=== PATIENT | female | born 1985 | race Caucasian/White ===

== ENCOUNTER 2016-06-01 19:08 | Emergency (ER) | payer MEDICAID ==
[~2016-06-01] VITALS: Wt 68.2 kg
[2016-06-01] MEDS ORDERED: ONDANSETRON 4 MG INJ IV STA (21:38)
[2016-06-01] MEDS ORDERED: morphine 4 MG/ML VIAL IV STA (21:38)
--- NOTE | 2016-06-01 21:42 | ERD ---
ER Documentation Chief Complaint Date/Time DATE: 06/01/16 TIME: 21:41 Chief Complaint abd pain rad into back and cwp HPI This a 31-year-old female who presents to the emergency department today complaining of abdominal pain that radiates into her back. Patient states she also feels some shortness of breath. She has not taken any medication for the pain. States she had one bout of vomiting. Denies any fevers or chills. Denies any cough. ROS All systems reviewed and are negative except as per history of present illness. Medications Home Meds Active Scripts Ondansetron Hcl* (Zofran*) 4 Mg Tablet, 4 MG PO Q6H for NAUSEA AND/OR VOMITING, #30 TAB Prov:KAREEM ESTRADA PA-C 06/02/16 Nitrofurantoin Monohyd Macrocr* (Macrobid*) 100 Mg Capsr, 100 MG PO BID for 7 Days, CAP Prov:KAREEM ESTRADA PA-C 06/02/16 Ibuprofen* (Motrin*) 600 Mg Tab, 600 MG PO Q6, #30 TAB Prov:KAREEM ESTRADA PA-C 06/02/16 Hydrocodone/Acetaminophen ([place] 5-325 Tablet) 1 Each Tablet, 1 TAB PO Q6H Y for PAIN, #12 TAB Prov:KAREEM ESTRADA PA-C 06/02/16 PMhx/Soc Medical and Surgical Hx: pt denies Medical Hx, pt denies Surgical Hx History of Surgery: No Anesthesia Reaction: No Hx Neurological Disorder: No Hx Respiratory Disorders: No Hx Cardiac Disorders: No Hx Psychiatric Problems: No Hx Miscellaneous Medical Probl: No Hx Alcohol Use: No Hx Substance Use: No Hx Tobacco Use: No Smoking Status: Never smoker Physical Exam Vitals Vital Signs Date Time Temp Pulse Resp B/P Pulse Ox O2 Delivery O2 Flow Rate FiO2 06/01/16 19:40 99.1 73 20 110/67 100 Physical Exam Const: No acute distress Head: Atraumatic Eyes: Normal Conjunctiva ENT: Normal External Ears, Nose and Mouth. Neck: Full range of motion..~ No meningismus. Resp: Clear to auscultation bilaterally Cardio: Regular rate and rhythm, no murmurs Abd: Soft, epigastric and right upper quadrant tenderness non distended. Normal bowel sounds. No right lower quadrant pain. No left lower quadrant pain. No tenderness to McBurney's. Skin: No petechiae or rashes Back: No midline or flank tenderness. No CVA tenderness Ext: No cyanosis, or edema Neur: Awake and alert Psych: Normal Mood and Affect Result Diagram: 06/01/16214906/01/162149 Results 24 hrs Laboratory Tests Test 06/01/16 21:50 06/01/16 23:00 Alanine Aminotransferase (ALT/SGPT) 69IU/L Albumin 4.3g/dl Albumin/Globulin Ratio 1.34 Alkaline Phosphatase 140IU/L Anion Gap 19 Aspartate Amino Transf (AST/SGOT) 44IU/L Basophils # 0.010^3/ul Basophils % 0.3% Blood Urea Nitrogen 16mg/dl Calcium Level 9.1mg/dl Carbon Dioxide Level 24mmol/L Chloride Level 106mmol/L Creatinine 0.88mg/dl Direct Bilirubin 0.00mg/dl Eosinophils # 0.110^3/ul Eosinophils % 0.8% Globulin 3.20g/dl Glucose Level 92mg/dl Hematocrit 39.7% Hemoglobin 12.9g/dl Indirect Bilirubin 0.3mg/dl Lipase 125U/L Lymphocytes # 2.110^3/ul Lymphocytes % 21.3% Mean Corpuscular Hemoglobin 27.2pg Mean Corpuscular Hemoglobin Concent 32.5g/dl Mean Corpuscular Volume 83.8fl Mean Platelet Volume 11.6fl Monocytes # 0.810^3/ul Monocytes % 7.6% Neutrophils # 6.910^3/ul Neutrophils % 69.7% Nucleated Red Blood Cells # 0.010^3/ul Nucleated Red Blood Cells % 0.0/100WBC Platelet Count 03566^3/UL Potassium Level 3.4mmol/L Red Blood Count 4.7410^6/ul Red Cell Distribution Width 15.1% Sodium Level 146mmol/L Total Bilirubin 0.3mg/dl Total Protein 7.5g/dl White Blood Count 9.810^3/ul Bedside Urine Blood 1+ Bedside Urine Glucose (UA) Negative Bedside Urine Ketones (LAB) Negative Bedside Urine Leukocyte Esterase (L 1+ Bedside Urine Nitrite (LAB) Negative Bedside Urine Protein (LAB) 1+ Bedside Urine pH (LAB) 6.0 Current Medications Medications (Trade) Dose Ordered Sig/Theodore Route PRN Reason Start Time Stop Time Status Last Admin Dose Admin Morphine Sulfate (morphine) 4 mg ONCE STAT IV 06/01/16 21:38 06/01/16 21:39 DC 06/01/16 21:58 Ondansetron HCl (Zofran Inj) 4 mg ONCE STAT IV 06/01/16 21:38 06/01/16 21:39 DC 06/01/16 21:56 DIAGNOSTIC IMAGING REPORT Patient: JORGE PEREZ : 1985 Age: 31 Sex: F MR #: [id number] DOS: 06/01/162137 Ordering MD: KAREEM ESTRADA PA-C Location: [facility] Room/Bed: PROCEDURE: Right upper quadrant abdominal ultrasound. CLINICAL INDICATION: Abdominal pain TECHNIQUE: Dooley scale and color doppler ultrasound images of the right upper quadrant. COMPARISON: None FINDINGS: Pancreas: Visualized portions appear of normal echogenicity, no focal lesions. Liver: Morphology: Normal in size and contour. Echogenicity: Normal. Focal lesions: None. Main portal vein: Patent with hepatopetal flow. Biliary System: Gallbladder appears distended without wall thickening. Sludge and small gallstones are seen layering within the gallbladder. No intrahepatic biliary dilatation. Common bile duct measures 3.8 mm in maximal dimension. Kidneys: Right 9.9 cm in length. Right renal cortical thickness is preserved. Normal echogenicity. No hydronephrosis. No renal calculi. No focal lesions. No free fluid identified. IMPRESSION: Gallbladder is distended without wall thickening to suggest cholecystitis. Sludge and small gallstones are present layering within the gallbladder. Normal caliber intrahepatic and extrahepatic biliary system. RPTAT: AADD .Altaf Lemons MD, MD Date Time Electronically viewed and signed by .Altaf Lemons MD, on 06/01/2016 22:36 .B/ CC: KAREEM ESTRADA PA-C DIAGNOSTIC IMAGING REPORT Patient: JORGE PEREZ : 1985 Age: 31 Sex: F MR #: [id number] DOS: 06/01/16 0000 Ordering MD: KAREEM ESTRADA PA-C Location: [facility] Room/Bed: PROCEDURE: Portable chest x-ray. CLINICAL INDICATION: Shortness of breath. TECHNIQUE: Portable AP view of the chest. COMPARISON: None. FINDINGS: No pulmonary edema or conolidation is identified. The cardiac silhouette is magnified. No pleural effusion is seen. There is no pneumothorax. IMPRESSION: 1. No evidence of acute cardiopulmonary disease. RPTAT: HTAR .Reyes Antonio MD, MD Date Time Electronically viewed and signed by .Reyes Antonio MD, MD on 06/01/2016 23:51 .R/ CC: KAREEM ESTRADA PA-C Procedures/MDM This 31-year-old female who presents to the emergency department today complaining of abdominal pain that radiates into her back for the past 3 hours as well as some shortness of breath. Patient had epigastric and right upper quadrant pain on physical exam and therefore did do an ultrasound and laboratory work Laboratory work shows no elevated white blood cell count. She is not anemic. Platelets are within normal limits. Sodium is mildly elevated otherwise electrolytes are within normal limits. Potassium is very mildly decreased. Glucose is within normal limits. Liver functions within normal limits. Lipase is within normal limits. test is negative UA shows 1+ leukocyte esterase. I will treat the patient with Macrobid for urinary tract infection. Ultrasound shows the gallbladder is distended without wall thickening to suggest cholecystitis. There is sludge and small gallstones present layering within the gallbladder. There is normal caliber intrahepatic and extrahepatic biliary system. Patient's symptoms at this time most consistent with gallstones and biliary colic as well as urinary tract infection. Low suspicion for acute surgical abdomen at this time. Patient was given morphine and Zofran here in the emergency department and pain improved significantly. Patient will be given a prescription for [place],, Motrin Zofran and Macrobid At this time the patient is stable for discharge and outpatient management. Patient should follow up with their PCP in the next 1-2 days. They may return to the emergency department sooner for any persistent or worsening of symptoms. Patient understood and agreed with the plan. Departure Diagnosis: Primary Impression: Biliary colic Additional Impression: UTI (urinary tract infection) Urinary tract infection type: site unspecified Hematuria presence: with hematuria Qualified Code: N39.0 - Urinary tract infection with hematuria, site unspecified Condition: KAREEM Cat PA-C Jun 01, 2016 21:42
[2016-06-01 22:20] LABS: ADD SCAN DIFF NO
[2016-06-01 22:23] LABS: BASOPHILS % 0.3 % (0.0-2.0); EOSINOPHILS # 0.1 10^3/ul (0.0-0.5); EOSINOPHILS % 0.8 % (0.0-7.0); HEMATOCRIT 39.7 % (37.0-47.0); HEMOGLOBIN 12.9 g/dl (12.0-16.0); LYMPHOCYTES # 2.1 10^3/ul (0.8-2.9); LYMPHOCYTES % 21.3 % (15.0-51.0); MEAN CORPUSCULAR HEMOGLOBIN 27.2 pg (29.0-33.0); MEAN CORPUSCULAR HGB CONC 32.5 g/dl (32.0-37.0); MEAN CORPUSCULAR VOLUME 83.8 fl (82.0-101.0); MEAN PLATELET VOLUME 11.6 fl (7.4-10.4); MONOCYTE # 0.8 10^3/ul (0.3-0.9); MONOCYTES % 7.6 % (0.0-11.0); NEUTROPHIL # 6.9 10^3/ul (1.6-7.5); NEUTROPHILS % 69.7 % (39.0-77.0); PLATELET COUNT 273 10^3/UL (140-415); RED BLOOD COUNT 4.74 10^6/ul (4.20-5.40); RED CELL DISTRIBUTION WIDTH 15.1 % (11.5-14.5); WHITE BLOOD COUNT 9.8 10^3/ul (4.8-10.8)
--- NOTE | 2016-06-01 22:37 | RADRPT ---
PROCEDURE: Right upper quadrant abdominal ultrasound. CLINICAL INDICATION: Abdominal pain TECHNIQUE: Dooley scale and color doppler ultrasound images of the right upper quadrant. COMPARISON: None FINDINGS: Pancreas: Visualized portions appear of normal echogenicity, no focal lesions. Liver: Morphology: Normal in size and contour. Echogenicity: Normal. Focal lesions: None. Main portal vein: Patent with hepatopetal flow. Biliary System: Gallbladder appears distended without wall thickening. Sludge and small gallstones are seen layering within the gallbladder. No intrahepatic biliary dilatation. Common bile duct measures 3.8 mm in maximal dimension. Kidneys: Right 9.9 cm in length. Right renal cortical thickness is preserved. Normal echogenicity. No hydronephrosis. No renal calculi. No focal lesions. No free fluid identified. IMPRESSION: Gallbladder is distended without wall thickening to suggest cholecystitis. Sludge and small gallstones are present layering within the gallbladder. Normal caliber intrahepatic and extrahepatic biliary system. RPTAT: AADD .Altaf Lemons MD, MD Date Time Electronically viewed and signed by .Altaf Lemons MD, on 06/01/2016 22:36 .B/
[2016-06-01 22:49] LABS: ALBUMIN 4.3 g/dl (3.3-4.9); POTASSIUM 3.4 mmol/L (3.5-5.1)
[2016-06-01 22:51] LABS: BILIRUBIN,INDIRECT 0.3 mg/dl (0-1.1); BILIRUBIN,TOTAL 0.3 mg/dl (0.2-1.3); CREATININE 0.88 mg/dl (0.44-1.00)
[2016-06-01 22:52] LABS: ALBUMIN/GLOBULIN RATIO 1.34; CALCIUM 9.1 mg/dl (8.4-10.2); TOTAL PROTEIN 7.5 g/dl (6.1-8.1)
[2016-06-01 23:02] LABS: URINE BLOOD (Dip) POC 1+ (NEGATIVE)
--- NOTE | 2016-06-01 23:51 | RADRPT ---
PROCEDURE: Portable chest x-ray. CLINICAL INDICATION: Shortness of breath. TECHNIQUE: Portable AP view of the chest. COMPARISON: None. FINDINGS: No pulmonary edema or conolidation is identified. The cardiac silhouette is magnified. No pleural effusion is seen. There is no pneumothorax. IMPRESSION: 1. No evidence of acute cardiopulmonary disease. RPTAT: HTAR .Reyes Antonio MD, Date Time Electronically viewed and signed by .Reyes Antonio MD, on 06/01/2016 23:51 .R/
[2016-06-02] MEDS ORDERED: HYDR-906 PO (00:25)
[2016-06-02] MEDS ORDERED: NITR-58 PO (00:25)
[2016-06-02] MEDS ORDERED: IBUP-1542 PO (00:25)
[2016-06-02] MEDS ORDERED: ONDA4TAB8 PO (00:26)
[2016-06-02 00:40] VITALS: BP 115/70; PULSE 75; RESP 20; TEMP 99.1
== END 2016-06-02 00:40 | disposition home or self-care (01) ==
LOC: FTE 19:08
DX: K80.20 Calculus of gallbladder without cholecystitis without obstruction (principal); N39.0 Urinary tract infection, site not specified
CPT/HCPCS: 36415; 71010; 76705; 80053; 81003; 83690; 85025; 96374; 96375; J2270; J2405; Z7502